=== PATIENT | male | born 1965 | race African-American/Black ===

== ENCOUNTER 2017-07-13 08:32 | Emergency (ER) | payer OTHER ==
[~2017-07-13] VITALS: Ht 175.3 cm; Wt 93.0 kg
[~2017-07-13 08:32] MED LIST: CRESTOR20 MG PO; INSU100I17 SQ; INSU100V8 SQ; LISI10TA2 PO; POLY17PO29 PO; hydrocodone PO
--- NOTE | 2017-07-13 11:34 | RAD ---
Left lower extremity venous duplex study 07/13/2017 Clinical History: Left leg pain.. Technique: Using a combination of real time ultrasound imaging and color-flow and pulse Doppler imaging techniques along with graded compression and augmentation, duplex evaluation of the deep venous system of the left lower extremity was performed. Multiple images were obtained. Findings: There is no sonographic evidence of deep venous thrombosis involving the visualized deep venous structures of left lower extremity. Impression: Negative study.
--- NOTE | 2017-07-13 11:49 | RAD ---
AP pelvis to include AP and lateral radiographs of the left hip 07/13/2017 Clinical history: Left hip pain for 2 days. An AP digital radiographs of the pelvis to include both hips was obtained. AP and lateral digital radiographs of the left hip were obtained. No fracture or dislocation of the pelvis is seen. Both hips are intact. Calcifications are seen within the pelvis consistent with phleboliths. Mild degenerative changes are seen involving both hips. Impression: Mild degenerative changes are seen involving both hips. No acute osseous abnormality is seen.
[2017-07-13 12:30] VITALS: BP 154/89
[2017-07-13] MEDS ORDERED: CYCL10TA2 PO (12:30)
[2017-07-13] MEDS ORDERED: DICL50TA2 PO (12:30)
--- NOTE | 2017-07-13 12:30 | PHYS DOC ---
Past Medical History Past Medical History: Diabetes-Type II, High Cholesterol, Hypertension Additional Past Medical Histor: blind in left eye Past Surgical History: Other Additional Past Surgical Histo: Lt.eye-r/t glaucoma Alcohol Use: None Drug Use: None Adult General Chief Complaint Chief Complaint: LOWER EXT PAIN HPI HPI Patient is a 52 year old male with history of diabetes type 2, and hypertension who presents today with moderate left hip pain radiating into his left hip that began a week ago. Patient denies any trauma. Patient states the pain is worse on ambulation and raising the left upper extremity. Patient denies any loss of bowel bladder function. Denies any numbness or tingling to bilateral lower extremities. Review of Systems Review of Systems Constitutional: Denies fever or chills [] GI: Denies abdominal pain, nausea, vomiting, bloody stools or diarrhea [] : Denies dysuria or hematuria [] Musculoskeletal: hip pain radiating to the right LE Integument: Denies rash or skin lesions [] Neurologic: Denies headache, focal weakness or sensory changes [] Allergies Allergies Allergies Coded Allergies Type Severity Reaction Last Updated Verified No Known Drug Allergies 03/21/14 No Physical Exam Physical Exam Constitutional: Well developed, well nourished, no acute distress, non-toxic appearance. [] Abdomen: Bowel sounds normal, soft, no tenderness, no masses, no pulsatile masses. [] Skin: Warm, dry, no erythema, no rash. [] Back: Please see extremity Extremities: Left lower extremity with no obvious deformity. Tenderness on the left lateral hip. Positive left leg straight raises. Full range of motion to the left lower extremity. +2 left pedal pulse. Cap refill less than 2 seconds the left toes. Sensation intact to the left lower extremity. Neurologic: Alert and oriented X 3, normal motor function, normal sensory function, no focal deficits noted. [] Psychologic: Affect normal, judgement normal, mood normal. [] Current Patient Data Vital Signs Vital Signs Date Time Temp Pulse Resp B/P (MAP) Pulse Ox O2 Delivery O2 Flow Rate FiO2 07/13/17 12:00 64 132/79 (96) 97 Room Air 07/13/17 09:55 98.1 16 98.1 EKG EKG [] Radiology/Procedures Radiology/Procedures [] Course & Med Decision Making Course & Med Decision Making Pertinent Labs and Imaging studies reviewed. (See chart for details) Patient is in the ED with complaints of left hip pain radiating to the left lower extremity. Left hip x-rays including pelvic were negative for any acute findings but noted for arthritis. He requested Dopplers of the left lower extremity which were negative for any acute findings. Discharged with diclofenac and Flexeril. Follow-up with PCP in 1-2 weeks. Dragon Disclaimer Dragon Disclaimer This electronic medical record was generated, in whole or in part, using a voice recognition dictation system. Departure Departure Impression: Primary Impression: Degenerative joint disease (DJD) of hip Additional Impression: Sciatica of left side Disposition: HOME, SELF-CARE Condition: STABLE Referrals: UNKNOWN PCP NAME (PCP) Follow-up with your doctor in one week Patient Instructions: Arthritis, Nonspecific, Sciatica with [facility]hab[facility] Additional Instructions: You were seen for left hip pain radiating into the left thigh. Your left hip x- ray shows you have arthritis in your left hip. You also have symptoms consistent with sciatic pain. Ice elevate the affected extremity. Follow-up with your doctor in 1-2 weeks. Take the prescribed medicines as ordered. Scripts Diclofenac Potassium (DICLOFENAC POTASSIUM) 50 Mg Tablet 1 TAB PO PRN TID, #30 TAB Prov: GOMEZ SERRATO APRN 07/13/17 Cyclobenzaprine Hcl (CYCLOBENZAPRINE HCL) 10 Mg Tablet 1 TAB PO TID, #30 TAB Prov: GOMEZ SERRATO APRN 07/13/17 Problem Qualifiers Primary Impression: Degenerative joint disease (DJD) of hip Osteoarthritis type: unspecified Laterality: left Qualified Codes: M16.12 - Unilateral primary osteoarthritis, left hip GOMEZ SERRATO APRN Jul 13, 2017 12:30
== END 2017-07-13 13:00 | disposition home or self-care (01) ==
LOC: ER 08:32
DX: M16.12 Unilateral primary osteoarthritis, left hip (principal); M54.32 Sciatica, left side; M79.622 Pain in left upper arm; E78.00 Pure hypercholesterolemia, unspecified; I10 Essential (primary) hypertension; E11.39 Type 2 diabetes mellitus with other diabetic ophthalmic complication; H40.9 Unspecified glaucoma
CPT/HCPCS: 73502; 93971; 99284-25

== ENCOUNTER 2017-10-03 08:35 | Emergency (ER) | payer OTHER ==
[~2017-10-03] VITALS: Ht 175.3 cm; Wt 93.0 kg
[~2017-10-03 08:35] MED LIST changes: +CYCL10TA2 PO; +DICL50TA2 PO
[2017-10-03 09:10] VITALS: BP 166/100
[2017-10-03 09:26] LABS: BILIRUBIN,URINE NEGATIVE (NEG); GLUCOSE,URINE NEGATIVE (NEG); NITRITE,URINE NEGATIVE (NEG); PROTEIN,URINE 100 mg/dL (NEG-TRACE); UROBILINOGEN,URINE 0.2 mg/dL (0.2 mg/dL)
--- NOTE | 2017-10-03 09:42 | PHYS DOC ---
Past Medical History Past Medical History: Diabetes-Type II, High Cholesterol, Hypertension Additional Past Medical Histor: blind in left eye Past Surgical History: Other Additional Past Surgical Histo: Lt.eye-r/t glaucoma Alcohol Use: None Drug Use: None Adult General Chief Complaint Chief Complaint: SEXUALLY TRANSMITTED DISEASE [facility] HPI Patient is a 52 year old male presents to the emergency department stating that he's been having discharge from his penis. He states this been going on for few days. Patient states that he is sexually active current time. Patient states the last time he had penile discharge was because he was spilling glucose in his urine. Patient denies fever, chills or any nausea or vomiting. Patient denies any abdominal pain or discomfort. Denies any dysuria. Patient denies penile discharge today. Review of Systems Review of Systems Constitutional: Denies fever or chills [] Eyes: Denies change in visual acuity, redness, or eye pain [] HENT: Denies nasal congestion or sore throat [] Respiratory: Denies cough or shortness of breath [] Cardiovascular: No additional information not addressed in HPI [] GI: Denies abdominal pain, nausea, vomiting, bloody stools or diarrhea [] : Denies dysuria or hematuria. Patient with penile discharge Musculoskeletal: Denies back pain or joint pain [] Integument: Denies rash or skin lesions [] Neurologic: Denies headache, focal weakness or sensory changes [] Endocrine: Denies polyuria or polydipsia [] All other systems were reviewed and found to be within normal limits, except as documented in this note. Current Medications Current Medications Current Medications Medications (Trade) Dose Ordered Sig/Leon Start Time Stop Time Status Last Admin Dose Admin Azithromycin (Zithromax) 1,000 mg 1X ONCE 10/03/17 11:15 10/03/17 11:16 DC 10/03/17 11:16 1,000 MG Ceftriaxone Sodium (Rocephin Im) 250 mg 1X ONCE 10/03/17 11:15 10/03/17 11:16 DC 10/03/17 11:19 250 MG Metronidazole (Flagyl) 2,000 mg 1X ONCE 10/03/17 11:15 10/03/17 11:16 DC 10/03/17 11:15 2,000 MG Allergies Allergies Allergies Coded Allergies Type Severity Reaction Last Updated Verified No Known Drug Allergies 03/21/14 No Physical Exam Physical Exam Constitutional: Well developed, well nourished, no acute distress, non-toxic appearance. [] HENT: Normocephalic, atraumatic, bilateral external ears normal, oropharynx moist, no oral exudates, nose normal. [] Eyes: PERRLA, EOMI, conjunctiva normal, no discharge. [] Neck: Normal range of motion, no tenderness, supple, no stridor. [] Cardiovascular:Heart rate regular rhythm, no murmur [] Lungs & Thorax: Bilateral breath sounds clear to auscultation [] Skin: Warm, dry, no erythema, no rash. [] Extremities: No tenderness, no cyanosis, no clubbing, ROM intact, no edema. [] Neurologic: Alert and oriented X 3, normal motor function, normal sensory function, no focal deficits noted. [] Psychologic: Affect normal, judgement normal, mood normal. [] Current Patient Data Vital Signs Vital Signs Date Time Temp Pulse Resp B/P (MAP) Pulse Ox O2 Delivery O2 Flow Rate FiO2 10/03/17 09:10 98.2 76 16 98 Room Air 98.2 Lab Values Laboratory Tests Test 10/03/17 09:10 Urine Collection Type Void Urine Color Yellow Urine Clarity Clear Urine pH 6.0 Urine Specific [place] 1.025 Urine Protein 100 mg/dL (NEG-TRACE) Urine Glucose (UA) Negative mg/dL (NEG) Urine Ketones (Stick) Negative mg/dL (NEG) Urine Blood Moderate (NEG) Urine Nitrite Negative (NEG) Urine Bilirubin Negative (NEG) Urine Urobilinogen Dipstick 0.2 mg/dL (0.2 mg/dL) Urine Leukocyte Esterase Negative (NEG) Urine RBC 3-5 /HPF (0-2) Urine WBC Occ /HPF (0-4) Urine Squamous Epithelial Cells Few /LPF Urine Bacteria 0 /HPF (0-FEW) Urine Sperm Present /HPF EKG EKG [] Radiology/Procedures Radiology/Procedures [][facility] [address] [place], [place] [id number] IMAGING REPORT Signed PATIENT: KYRSTAL AN ACCOUNT: [id number] : 1965 LOCATION: ER AGE: 52 SEX: M EXAM STATUS: REG ER ORD. PHYSICIAN: NAEL WESTON APRN REASON: hematuria right back pain x 1 week; eval kidney stone PROCEDURE: CT ABDOMEN PELVIS WO CONTRAST PQRS Compliance Statement: One or more of the following individualized dose reduction techniques were utilized for this examination: 1. Automated exposure control 2. Adjustment of the mA and/or kV according to patient size 3. Use of iterative reconstruction technique CT ABDOMEN PELVIS WO CONTRAST Clinical Indication: hematuria right back pain x 1 week; eval kidney stone Comparison: CT abdomen and pelvis with contrast, 03/21/2014. Technique: Helical CT imaging of the abdomen and pelvis is performed without IV or oral contrast. Findings: Minimal atelectasis or scarring in the lung bases. Cardiac size normal. Coronary artery disease. There are 2 tiny hypodensities in the right hepatic lobe that are stable. Hemangioma in segment 3 of the liver is stable in size. Much smaller hemangioma in subcapsular segment 2 of the liver is not seen without IV contrast. Gallbladder, pancreas, and adrenal glands are normal. Calcified granulomas in the spleen. The abdominal aorta is normal in caliber. No renal, ureteral, or bladder calculus. No perinephric stranding or hydronephrosis. There is a 14 mm hypodensity in the interpolar right kidney, incompletely characterized but statistically probably a cyst. Stomach unremarkable. No dilated small bowel. The appendix is normal. There is mild descending and sigmoid colon diverticulosis without inflammation. No abdominal adenopathy or free fluid. The urinary bladder wall is not thickened. Prostate size normal. No pelvic free fluid. No acute bone abnormality. There is left lateral midabdomen intramuscular lipoma. IMPRESSION: 1. No renal or ureteral calculus. No obstructive uropathy. 2. The appendix is normal. 3. Stable hemangioma in the left hepatic lobe. 4. Mild distal colon diverticulosis without evidence of diverticulitis. DICTATED and SIGNED BY: JESUS MANUEL CANO MD DATE: 10/03/17 1111 CC: NAEL WESTON APRN; UNKNOWN PCP NAME ~ Course & Med Decision Making Course & Med Decision Making Pertinent Labs and Imaging studies reviewed. (See chart for details) Patient urine was negative for UTI, positive for blood. Patient was provided with this information with patient continuing to denies back pain or abdominal pain. Patient had agreed to be treated for STD with Rocephin, flagyl and zithromax. 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 Patient then states that he had been masturbating and noticed that he sperm in his urine. Patient is concern about the sperm being in the urine and cannot understand why there is sperm in his urine. CT scan was negative for kidney stones. It does show diverticulosis. Patient will be discharged home with recommendations to follow up with his primary care physician in regards to the hematuria. Patient had been treated here in the emergency department with Rocephin, Flagyl and Zithromax. He'll be discharged home with recommendations to follow-up in 3-5 days with his primary care physician. Sent symptoms to return back to the emergency department has been provided. All questions and concerns been answered. [] I've spoken with the patient and/or caregivers. I've explained the patient's condition, diagnosis and treatment plan based on information available to me at this time. I've answered the patient's and/or caregivers questions and addressed any concerns. The patient and/or caregivers have a good understanding the patient's diagnosis, condition and treatment plan as can be expected at this point. Vital signs have been stabilized. The patient's condition is stable for discharge from the emergency department. The patient will pursue further outpatient evaluation with her primary care provider or other designated consulting physician as outlined in the discharge instructions. Patient and/or caregivers are agreeable to this plan of care and follow-up instructions have been explained in detail. The patient and/or caregivers have received these instructions in written format and expressed understanding of these discharge instructions. The patient and her caregivers are aware that if any significant change in condition or worsening of symptoms should prompt him to immediately return to this of the closest emergency department. If an emergent department is not readily available I would encourage him to call 911. Brian Disclaimer Maureenon Disclaimer This electronic medical record was generated, in whole or in part, using a voice recognition dictation system. Departure Departure Impression: Primary Impression: Hematuria Additional Impression: Concern about sexually transmitted disease in male without diagnosis Disposition: HOME, SELF-CARE Condition: STABLE Referrals: UNKNOWN PCP NAME (PCP) Patient Instructions: Hematuria-Brief Additional Instructions: Activity as tolerated. Medications as prescribed. Tylenol or ibuprofen for pain and discomfort. Follow-up with your primary care physician in regards to hematorrhea. You have been treated for sexual transmitted infections. You will be notified if the results are positive. Follow-up through primary care physician next 3-5 days. Return back to the emergency department for signs and symptoms that become worse. Problem Qualifiers Primary Impression: Hematuria Hematuria type: unspecified type Qualified Codes: R31.9 - Hematuria, unspecified NAEL WESTON APRN Oct 03, 2017 09:42
[2017-10-03 10:12] LABS: BACTERIA,URINE 0 /HPF (0-FEW); SPERM,URINE PRESENT /HPF; SQUAMOUS EPITHELIAL CELL,UR FEW /LPF; WBC,URINE OCC /HPF (0-4)
[2017-10-03] MEDS ORDERED: AZITHROMYCIN 250 MG TABLET. PO ONE (11:15)
[2017-10-03] MEDS ORDERED: metroNIDAZOLE 500 MG TABLET PO ONE (11:15)
[2017-10-03] MEDS ORDERED: cefTRIAXone IM 250 MG VIAL IM ONE (11:15)
--- NOTE | 2017-10-03 11:27 | RAD ---
PQRS Compliance Statement: One or more of the following individualized dose reduction techniques were utilized for this examination: 1. Automated exposure control 2. Adjustment of the mA and/or kV according to patient size 3. Use of iterative reconstruction technique CT ABDOMEN PELVIS WO CONTRAST Clinical Indication: hematuria right back pain x 1 week; eval kidney stone Comparison: CT abdomen and pelvis with contrast, 03/21/2014. Technique: Helical CT imaging of the abdomen and pelvis is performed without IV or oral contrast. Findings: Minimal atelectasis or scarring in the lung bases. Cardiac size normal. Coronary artery disease. There are 2 tiny hypodensities in the right hepatic lobe that are stable. Hemangioma in segment 3 of the liver is stable in size. Much smaller hemangioma in subcapsular segment 2 of the liver is not seen without IV contrast. Gallbladder, pancreas, and adrenal glands are normal. Calcified granulomas in the spleen. The abdominal aorta is normal in caliber. No renal, ureteral, or bladder calculus. No perinephric stranding or hydronephrosis. There is a 14 mm hypodensity in the interpolar right kidney, incompletely characterized but statistically probably a cyst. Stomach unremarkable. No dilated small bowel. The appendix is normal. There is mild descending and sigmoid colon diverticulosis without inflammation. No abdominal adenopathy or free fluid. The urinary bladder wall is not thickened. Prostate size normal. No pelvic free fluid. No acute bone abnormality. There is left lateral midabdomen intramuscular lipoma. IMPRESSION: 1. No renal or ureteral calculus. No obstructive uropathy. 2. The appendix is normal. 3. Stable hemangioma in the left hepatic lobe. 4. Mild distal colon diverticulosis without evidence of diverticulitis.
== END 2017-10-03 12:00 | disposition home or self-care (01) ==
LOC: ER 08:35
DX: Z11.3 Encounter for screening for infections with a predominantly sexual mode of transmission (principal); R31.9 Hematuria, unspecified; R36.9 Urethral discharge, unspecified; E78.00 Pure hypercholesterolemia, unspecified; I10 Essential (primary) hypertension; H54.40 Blindness, one eye, unspecified eye; E11.39 Type 2 diabetes mellitus with other diabetic ophthalmic complication; H40.9 Unspecified glaucoma
CPT/HCPCS: 74176; 81001; 87491; 87591; 96372; 99285; J0696; Q0144

== ENCOUNTER 2018-09-30 13:55 | Emergency (ER) | payer OTHER ==
[~2018-09-30] VITALS: Ht 175.3 cm; Wt 97.5 kg
[2018-09-30 14:46] LABS: BILIRUBIN,URINE NEGATIVE (NEG); CLARITY,URINE CLEAR; COLOR,URINE YELLOW; NITRITE,URINE NEGATIVE (NEG); PH,URINE 7.5; PROTEIN,URINE >=300 mg/dL (NEG-TRACE); UROBILINOGEN,URINE 0.2 mg/dL (0.2 mg/dL)
[2018-09-30 14:59] LABS: BACTERIA,URINE 0 /HPF (0-FEW); RBC,URINE >40 /HPF (0-2); SQUAMOUS EPITHELIAL CELL,UR FEW /LPF
--- NOTE | 2018-09-30 15:13 | RAD ---
PA chest and right rib radiographs, 3 images. History: Follow-up serial 2 days ago. Pain. Comparison: None. Findings: Cardiomediastinal silhouette is within normal limits for size. Bilateral lung mg appear clear without evidence of infiltrate, effusion, or pneumothorax. There are 12 well-formed pairs of ribs. No acute, displaced rib fractures are identified. Impression: 1. No acute abnormality identified in the chest. Electronically signed by: Toby Miles MD (09/30/2018 3:10 PM) [place] [id number]
[2018-09-30] MEDS ORDERED: IV NORMAL SALINE 1000ML BAG 1,000 ML IV ONE (15:30)
[2018-09-30] MEDS ORDERED: CONTRAST GIVEN. MC PRN (15:30)
[2018-09-30 15:53] LABS: BASO # 0.1 x10^3/uL (0.0-0.2); BASO % 1 % (0-3); EOS # 0.4 x10^3/uL (0.0-0.7); EOS % 5 % (0-3); HEMATOCRIT 38.4 % (39.0-53.0); HEMOGLOBIN 13.5 g/dL (13.0-17.5); LYMPH # 2.2 x10^3/uL (1.0-4.8); LYMPH % 28 % (24-48); MEAN CORPUSCULAR HEMOGLOBIN 31 pg (25-35); MEAN CORPUSCULAR HGB CONC 35 g/dL (31-37); MEAN CORPUSCULAR VOLUME 88 fL (79-100); MONO # 0.7 x10^3/uL (0.0-1.1); MONO % 8 % (0-9); NEUT # 4.6 x10^3uL (1.8-7.7); NEUT % 58 % (31-73); PLATELET COUNT 237 x10^3/uL (140-400); RED BLOOD COUNT 4.35 x10^6/uL (4.30-5.70); RED CELL DISTRIBUTION WIDTH 14.2 % (11.5-14.5)
[2018-09-30] MEDS ORDERED: fentaNYL PF VIAL 100 MCG/2 ML VIAL IV ONE ×2 (16:00→17:00)
[2018-09-30] MEDS ORDERED: IOHEXOL 300 MG/ML 100ML VIAL. IV ONE (16:00)
[2018-09-30 16:18] LABS: CALCIUM 9.5 mg/dL (8.5-10.1); CREATININE 1.4 mg/dL (0.7-1.3); GFR 64.1; POTASSIUM 3.9 mmol/L (3.5-5.1)
--- NOTE | 2018-09-30 16:23 | PHYS DOC ---
Past Medical History Past Medical History: Diabetes-Type II, High Cholesterol, Hypertension Additional Past Medical Histor: blind in left eye Past Surgical History: Other Additional Past Surgical Histo: Lt.eye-r/t glaucoma Alcohol Use: None Drug Use: None Adult General Chief Complaint Chief Complaint: BACK PAIN OR INJURY [facility] HPI Patient is a 53 year old male who presents with fell 2 days ago in the back of a trailer and states he hit his right flank on a steel railing of the trailer. States when he coughs it hurts and breathes or moves. Patient denies any head in his urine. Patient denies any chest pain, shortness of breath, nausea, vomiting. Patient denies hitting his head. Patient does have tenderness to the right flank with bruising. Patient has a history of diabetes, hypertension, high cholesterol. He has no known drug allergies and his primary care is Dr. Perez. Patient states at 10:00 this morning he took 50 mg tramadol, 800 of ibuprofen, gabapentin. Patient rates his pain a 9 out of 10. Review of Systems Review of Systems Constitutional: Denies fever or chills [] Eyes: Denies change in visual acuity, redness, or eye pain [] HENT: Denies nasal congestion or sore throat [] Respiratory: Denies cough or shortness of breath [] Cardiovascular: No additional information not addressed in HPI [] GI: Denies abdominal pain, nausea, vomiting, bloody stools or diarrhea [] : Denies dysuria or hematuria [] Musculoskeletal: right flank bruising and tenderness from a fall. Denies back pain or joint pain [] Integument: Denies rash or skin lesions [] Neurologic: Denies headache, focal weakness or sensory changes [] Endocrine: Denies polyuria or polydipsia [] All other systems were reviewed and found to be within normal limits, except as documented in this note. Current Medications Current Medications Current Medications Medications (Trade) Dose Ordered Sig/Leon Start Time Stop Time Status Last Admin Dose Admin Fentanyl Citrate (Fentanyl 2ml Vial) 50 mcg 1X ONCE 09/30/18 17:00 09/30/18 17:01 DC 09/30/18 17:03 50 MCG Info (CONTRAST GIVEN -- Rx MONITORING) 1 each PRN DAILY PRN 09/30/18 15:30 10/02/18 15:29 Iohexol (Omnipaque 300 Mg/ml) 75 ml 1X ONCE 09/30/18 16:00 09/30/18 16:01 DC 09/30/18 16:48 75 ML Ketorolac Tromethamine (Toradol 30mg Vial) 30 mg 1X ONCE 09/30/18 17:30 09/30/18 17:31 DC 09/30/18 18:16 30 MG Orphenadrine Citrate (Norflex) 60 mg 1X ONCE 09/30/18 17:00 09/30/18 17:01 DC 09/30/18 17:03 60 MG Sodium Chloride 1,000 ml @ 1,000 mls/hr 1X ONCE 09/30/18 15:30 09/30/18 16:29 DC 09/30/18 15:46 1,000 MLS/HR Allergies Allergies Allergies Coded Allergies Type Severity Reaction Last Updated Verified No Known Drug Allergies 03/21/14 No Physical Exam Physical Exam Constitutional: Well developed, well nourished, no acute distress, non-toxic appearance. [] HENT: Normocephalic, atraumatic, bilateral external ears normal, oropharynx moist, no oral exudates, nose normal. [] Eyes: PERRLA, EOMI, conjunctiva normal, no discharge. [] Neck: Normal range of motion, no tenderness, supple, no stridor. [] Cardiovascular:Heart rate regular rhythm, no murmur [] Lungs & Thorax: Bilateral breath sounds clear to auscultation [] Abdomen: Bowel sounds normal, soft, no tenderness, no masses, no pulsatile masses. [] Skin: Warm, dry, no erythema, no rash. [] Back: Right flank bruising and tenderness, no CVA tenderness. [] Extremities: No tenderness, no cyanosis, no clubbing, ROM intact, no edema. [] Neurologic: Alert and oriented X 3, normal motor function, normal sensory function, no focal deficits noted. [] Psychologic: Affect normal, judgement normal, mood normal. [] Current Patient Data Vital Signs Vital Signs Date Time Temp Pulse Resp B/P (MAP) Pulse Ox O2 Delivery O2 Flow Rate FiO2 09/30/18 16:16 77 18 220/122 (154) 98 Room Air 09/30/18 14:27 98.6 98.6 Lab Values Laboratory Tests Test 09/30/18 14:39 11/16/18 15:40 Urine Collection Type Unknown Urine Color Yellow Urine Clarity Clear Urine pH 7.5 Urine Specific [place] 1.015 Urine Protein >=300 mg/dL (NEG-TRACE) Urine Glucose (UA) Negative mg/dL (NEG) Urine Ketones (Stick) Negative mg/dL (NEG) Urine Blood Moderate (NEG) Urine Nitrite Negative (NEG) Urine Bilirubin Negative (NEG) Urine Urobilinogen Dipstick 0.2 mg/dL (0.2 mg/dL) Urine Leukocyte Esterase Negative (NEG) Urine RBC >40 /HPF (0-2) Urine WBC 1-4 /HPF (0-4) Urine Squamous Epithelial Cells Few /LPF Urine Bacteria 0 /HPF (0-FEW) Urine Mucus Slight /LPF White Blood Count 8.0 x10^3/uL (4.0-11.0) Red Blood Count 4.35 x10^6/uL (4.30-5.70) Hemoglobin 13.5 g/dL (13.0-17.5) Hematocrit 38.4 % (39.0-53.0) L Mean Corpuscular Volume 88 fL (79-100) Mean Corpuscular Hemoglobin 31 pg (25-35) Mean Corpuscular Hemoglobin Concent 35 g/dL (31-37) Red Cell Distribution Width 14.2 % (11.5-14.5) Platelet Count 237 x10^3/uL (140-400) Neutrophils (%) (Auto) 58 % (31-73) Lymphocytes (%) (Auto) 28 % (24-48) Monocytes (%) (Auto) 8 % (0-9) Eosinophils (%) (Auto) 5 % (0-3) H Basophils (%) (Auto) 1 % (0-3) Neutrophils # (Auto) 4.6 x10^3uL (1.8-7.7) Lymphocytes # (Auto) 2.2 x10^3/uL (1.0-4.8) Monocytes # (Auto) 0.7 x10^3/uL (0.0-1.1) Eosinophils # (Auto) 0.4 x10^3/uL (0.0-0.7) Basophils # (Auto) 0.1 x10^3/uL (0.0-0.2) Sodium Level 140 mmol/L (136-145) Potassium Level 3.9 mmol/L (3.5-5.1) Chloride Level 102 mmol/L (98-107) Carbon Dioxide Level 30 mmol/L (21-32) Anion Gap 8 (6-14) Blood Urea Nitrogen 18 mg/dL (8-26) Creatinine 1.4 mg/dL (0.7-1.3) H Estimated GFR (Cockcroft-Gault) 64.1 Glucose Level 151 mg/dL (70-99) H Calcium Level 9.5 mg/dL (8.5-10.1) Laboratory Tests 09/30/18 15:40 Laboratory Tests 09/30/18 15:40 EKG EKG [] Radiology/Procedures Radiology/Procedures [] Impressions: [facility] [id number] [place] [address] IMAGING REPORT Signed PATIENT: KRYSTAL AN ACCOUNT: [id number] : 1965 LOCATION: ER AGE: 53 SEX: M EXAM STATUS: REG ER ORD. PHYSICIAN: NAEL WHITEHEAD APRN REASON: fell and hurt right flank PROCEDURE: RIBS RIGHT AND PA CHEST PA chest and right rib radiographs, 3 images. History: Follow-up serial 2 days ago. Pain. Comparison: None. Findings: Cardiomediastinal silhouette is within normal limits for size. Bilateral lung mg appear clear without evidence of infiltrate, effusion, or pneumothorax. There are 12 well-formed pairs of ribs. No acute, displaced rib fractures are identified. Impression: 1. No acute abnormality identified in the chest. Electronically signed by: Toby Arce MD (09/30/2018 3:10 PM) [facility] DICTATED and SIGNED BY: TOBY ARCE MD DATE: 09/30/18 1508 [facility] [address] [place], [place] [id number] IMAGING REPORT Signed PATIENT: KRYSTAL AN ACCOUNT: [id number] : 1965 LOCATION: ER AGE: 53 SEX: M EXAM STATUS: REG ER ORD. PHYSICIAN: NAEL WHITEHEAD APRN REASON: fall hitting right flank, blood in urine PROCEDURE: CT ABD PELV W/ IV CONTRST ONLY Exam performed: CT abdomen and pelvis with contrast HISTORY: Patient fell hitting right flank, blood in urine. DATE OF SERVICE: 09/29/2018. COMPARISON: CT abdomen and pelvis from 10/03/2017 and right upper quadrant ultrasound from 04/07/2014 TECHNIQUE: Contiguous helical acquisitions are obtained through the abdomen and pelvis during intravenous administration of 75 cc of Omnipaque 300. Sagittal and coronal reformatted images are obtained and reviewed. FINDINGS: Linear atelectasis right lung base. Left lung bases clear. Visualized heart is normal. Liver is normal in size and attenuation. There are a couple tiny cysts in the right hepatic lobe. There is a 5.9 x 4.0 cm low attenuating mass with peripheral puddling of contrast in the left hepatic lobe likely a hemangioma. This was seen previously on the noncontrast CT scan and has been present since the abdominal ultrasound dated 04/07/2014. . Gallbladder, spleen and pancreas appear normal. Both adrenal glands and bilateral kidneys are normal in size with symmetric excretion of contrast via both kidneys. There is a small cyst in the right mid to inferior renal pole. No perinephric stranding is identified. Aorta is normal in caliber without aneurysm. No retroperitoneal or mesenteric lymphadenopathy is seen. Small and large bowel loops are nondilated and unremarkable. The visualized appendix is normal. The urinary bladder is partially decompressed. The prostate gland, seminal vesicles and the rectum appear grossly normal. No free fluid. Spondylotic changes involving the lumbar spine with degenerative disc disease at L5-S1. IMPRESSION: No acute intra-abdominal or pelvic process detected. Tiny hepatic cysts with a 5.9 x 4.0 cm hemangioma in the right hepatic lobe. PQRS Compliance Statement: One or more of the following individualized dose reduction techniques were utilized for this examination: 1. Automated exposure control 2. Adjustment of the mA and/or kV according to patient size 3. Use of iterative reconstruction technique Electronically signed by: Carmelina Zavala MD (09/30/2018 6:20 PM) [facility] DICTATED and SIGNED BY: CARMELINA ZAVALA MD DATE: 09/30/18 1808 Course & Med Decision Making Course & Med Decision Making Patient is a 53 year old male who presents with fell 2 days ago in the back of a trailer and states he hit his right flank on a steel railing of the trailer. States when he coughs it hurts and breathes or moves. Patient denies any head in his urine. Patient denies any chest pain, shortness of breath, nausea, vomiting. Patient denies hitting his head. Patient does have tenderness to the right flank with bruising. Patient has a history of diabetes, hypertension, high cholesterol. He has no known drug allergies and his primary care is Dr. Perez. Patient states at 10:00 this morning he took 50 mg tramadol, 800 of ibuprofen, gabapentin. Patient rates his pain a 9 out of 10. Lungs are clear to auscultation all lobes. Heart rate is regular without murmur. Has bruising to the right flank and tenderness. Urinalysis shows moderate amount of blood. Right rib x-ray shows units abnormalities. Patient is told that there is a moderate amount of blood in his urine that he must check his kidneys with a abdomen pelvis CT with contrast and blood work. Also gave patient a dose of fentanyl and NS 1000ML bolus. The patient also had me explaining this to his over the phone. Creatinine is 1.4 but rest of blood work is unremarkable. CT abdomen pelvis shows No acute intra-abdominal or pelvic process detected.Tiny hepatic cysts with a 5.9 x 4.0 cm hemangioma in the right hepatic lobe. Patient's blood pressure upon arrival was 175/101 and at 1832 it is 215/114. Heart rate 77. He has been given 50mcg Fentanyl, Toradol, NS bolus, and Norflex. Patient denies chest pain or soa. Patient has no extremity swelling , alert and oriented and nuerologically intact. Blood work is unremarkable. [place] on this patient he states that the patient is to follow-up with his primary care with as soon as possible for his hypertension and for a follow-up from today's visit. Patient is given a prescription for Oneco. Dragon Disclaimer Dragon Disclaimer This electronic medical record was generated, in whole or in part, using a voice recognition dictation system. Departure Departure Impression: Primary Impression: Contusion Additional Impression: Hematuria Disposition: 01 HOME, SELF-CARE Condition: STABLE Referrals: LORA PEREZ MD (PCP) Patient Instructions: Contusion Additional Instructions: Follow-up with her doctor soon as possible concerning follow-up for this visit and for your high blood pressure. Medications as prescribed. Scripts Hydrocodone/Apap 5-325 (NORCO 5-325 TABLET) 1 Each Tablet 1 TAB PO PRN Q6HRS PRN for PAIN, #10 TAB 0 Refills Prov: NAEL WHITEHEAD APRN 09/30/18 Problem Qualifiers Primary Impression: Contusion Encounter type: initial encounter Contusion area: lower back Qualified Codes: S30.0XXA - Contusion of lower back and pelvis, initial encounter Additional Impression: Hematuria Hematuria type: unspecified type Qualified Codes: R31.9 - Hematuria, unspecified NAEL WHITEHEAD WELFARE SERVICE AIDE Sep 30, 2018 16:23
[2018-09-30] MEDS ORDERED: ORPHENADRINE CITRATE 60 MG/2 ML VIAL. IM ONE (17:00)
[2018-09-30] MEDS ORDERED: KETOROLAC 30 MG/ML VIAL. IV ONE (17:30)
--- NOTE | 2018-09-30 18:24 | RAD ---
Exam performed: CT abdomen and pelvis with contrast HISTORY: Patient fell hitting right flank, blood in urine. DATE OF SERVICE: 09/29/2018. COMPARISON: CT abdomen and pelvis from 10/03/2017 and right upper quadrant ultrasound from 04/07/2014 TECHNIQUE: Contiguous helical acquisitions are obtained through the abdomen and pelvis during intravenous administration of 75 cc of Omnipaque 300. Sagittal and coronal reformatted images are obtained and reviewed. FINDINGS: Linear atelectasis right lung base. Left lung bases clear. Visualized heart is normal. Liver is normal in size and attenuation. There are a couple tiny cysts in the right hepatic lobe. There is a 5.9 x 4.0 cm low attenuating mass with peripheral puddling of contrast in the left hepatic lobe likely a hemangioma. This was seen previously on the noncontrast CT scan and has been present since the abdominal ultrasound dated 04/07/2014. . Gallbladder, spleen and pancreas appear normal. Both adrenal glands and bilateral kidneys are normal in size with symmetric excretion of contrast via both kidneys. There is a small cyst in the right mid to inferior renal pole. No perinephric stranding is identified. Aorta is normal in caliber without aneurysm. No retroperitoneal or mesenteric lymphadenopathy is seen. Small and large bowel loops are nondilated and unremarkable. The visualized appendix is normal. The urinary bladder is partially decompressed. The prostate gland, seminal vesicles and the rectum appear grossly normal. No free fluid. Spondylotic changes involving the lumbar spine with degenerative disc disease at L5-S1. IMPRESSION: No acute intra-abdominal or pelvic process detected. Tiny hepatic cysts with a 5.9 x 4.0 cm hemangioma in the right hepatic lobe. PQRS Compliance Statement: One or more of the following individualized dose reduction techniques were utilized for this examination: 1. Automated exposure control 2. Adjustment of the mA and/or kV according to patient size 3. Use of iterative reconstruction technique Electronically signed by: Carmelina Zavala MD (09/30/2018 6:20 PM) [facility]
[2018-09-30 18:30] VITALS: BP 181/97
[2018-09-30] MEDS ORDERED: HYDR-3164 PO (18:38)
== END 2018-09-30 18:55 | disposition home or self-care (01) ==
LOC: ER 13:55
DX: S30.1XXA Contusion of abdominal wall, initial encounter (principal); S30.0XXA Contusion of lower back and pelvis, initial encounter; R05 Cough; K76.89 Other specified diseases of liver; R31.9 Hematuria, unspecified; E11.9 Type 2 diabetes mellitus without complications; E78.00 Pure hypercholesterolemia, unspecified; I10 Essential (primary) hypertension; E11.39 Type 2 diabetes mellitus with other diabetic ophthalmic complication; H42 Glaucoma in diseases classified elsewhere; W18.39XA Other fall on same level, initial encounter; Y93.89 Activity, other specified; Y92.89 Other specified places as the place of occurrence of the external cause; Y99.8 Other external cause status
CPT/HCPCS: 36415; 71101; 74177; 80048; 81001; 85025; 96372; 96374; 96375; 96376; 99285; J1885; J2360; J3010; J7030; Q9967

== ENCOUNTER 2019-08-15 10:39 | Emergency (ER) | payer OTHER ==
[~2019-08-15] VITALS: Ht 177.8 cm; Wt 91.2 kg
[~2019-08-15 10:39] MED LIST changes: +HYDR-3164 PO
[2019-08-15] MEDS ORDERED: KETOROLAC 30 MG/ML VIAL. IM STA (11:13)
[2019-08-15] MEDS ORDERED: ORPHENADRINE CITRATE 60 MG/2 ML VIAL. IM ONE (11:15)
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
[2019-08-15] MEDS ORDERED: ORPH100T PO (11:57)
[2019-08-15 12:06] VITALS: BP 189/100
== END 2019-08-15 12:06 | disposition home or self-care (01) ==
LOC: ER 10:39
DX: M54.5 Low back pain (principal); G89.29 Other chronic pain; E11.9 Type 2 diabetes mellitus without complications; E78.00 Pure hypercholesterolemia, unspecified; I10 Essential (primary) hypertension; F17.210 Nicotine dependence, cigarettes, uncomplicated; V89.2XXA Person injured in unspecified motor-vehicle accident, traffic, initial encounter; Y93.I9 Activity, other involving external motion; Y92.89 Other specified places as the place of occurrence of the external cause; Y99.8 Other external cause status
CPT/HCPCS: 82962; 96372; 99284; J1885; J2360